=== PATIENT | female | born 1960 | race Caucasian/White ===

== ENCOUNTER 2018-06-19 10:39 | Outpatient (CLI) | payer OTHER | END 2018-06-19 10:40 | disposition home or self-care (01) | LOC: BICMAMMO 10:39 | PROVIDERS: ATTEND Obstetrics & Gynecology | DX: Z12.31 Encounter for screening mammogram for malignant neoplasm of breast (principal); R92.1 Mammographic calcification found on diagnostic imaging of breast | CPT/HCPCS: 77063; 77067 ==

== ENCOUNTER 2018-10-09 07:51 | Outpatient (CLI) | payer OTHER ==
--- NOTE | 2018-10-09 10:14 | ULT ---
LEFT BREAST DIAGNOSTIC ULTRASOUND: Indication: Palpable abnormality in the left breast at the 1 o'clock position. Comparison: None. FINDINGS: No suspicious sonographic abnormality is seen within the palpable region of the left breast at the 1 o'clock position. IMPRESSION: No suspicious sonographic abnormality seen within the palpable region of the left breast at the 1 o' clock position. POS: OFF
== END 2018-10-09 07:52 | disposition home or self-care (01) ==
LOC: BICULT 07:51
PROVIDERS: ATTEND Obstetrics & Gynecology
DX: N60.02 Solitary cyst of left breast (principal); N63.20 Unspecified lump in the left breast, unspecified quadrant
CPT/HCPCS: G0279

== ENCOUNTER 2020-04-30 09:26 | Outpatient (CLI) | payer OTHER ==
--- NOTE | 2020-04-30 10:26 | MMO ---
Bilateral MAMMO Bilat Screen [facility]. CLINICAL HISTORY: Patient is 59 years old and is seen for screening. The patient has no family history of breast cancer. The patient has no personal history of cancer. VIEWS: The views performed were: bilateral craniocaudal with tomosynthesis; bilateral mediolateral oblique with tomosynthesis; and left mediolateral oblique. FILMS COMPARED: The present examination has been compared to prior imaging studies performed at [facility] on 06/19/2018 and 10/09/2018. This study has been interpreted with the assistance of computer-aided detection. MAMMOGRAM FINDINGS: There are scattered fibroglandular densities. There is an asymmetry seen in the right breast. In the left breast, there are no suspicious masses, calcifications or areas of architectural distortion. IMPRESSION: ASYMMETRY IN THE RIGHT BREAST REQUIRES ADDITIONAL EVALUATION. AN ULTRASOUND EXAM IS RECOMMENDED IF NEEDED. ADDITIONAL IMAGING. THE RESULTS OF THIS EXAM WERE SENT TO THE PATIENT. ACR BI-RADS Category 0 - Incomplete: Need additional imaging evaluation. [facility] will notify the patient of the need for additional imaging services. MAMMOGRAPHY NOTE: 1. A negative mammogram report should not delay a biopsy if a dominant of clinically suspicious mass is present. 2. Approximately 10% to 15% of breast cancers are not detected by mammography. 3. Adenosis and dense breasts may obscure an underlying neoplasm. Reported by: JERRY HULL MD Electonically Signed: [id number]
== END 2020-04-30 09:27 | disposition home or self-care (01) ==
LOC: BICMAMMO 09:26
PROVIDERS: ATTEND Family Medicine
DX: Z12.31 Encounter for screening mammogram for malignant neoplasm of breast (principal)
CPT/HCPCS: 77063; 77067

== ENCOUNTER 2020-05-05 09:04 | Outpatient (CLI) | payer OTHER ==
--- NOTE | 2020-05-05 13:08 | CT ---
CT ANGIOGRAM CHEST WITH 3D RENDERING CT ANGIOGRAM ABDOMEN AND PELVIS WITH 3D RENDERING: Date: 05/05/2020 Exam includes with and without IV contrast. HISTORY: Mitral valve regurgitation FINDINGS: CT CHEST WITH 3D RENDERING: Heterogeneous attenuation within the right and left thyroid glands with a 1.1 cm diameter nodule in t he right lobe. Small, very faint, poorly defined ground-glass opacity in the right upper lobe measuri ng approximately 0.7 cm. Depending upon risk factors, consideration for follow-up chest CT scan in 6- 12 months for further assessment. Marked S-shaped scoliosis of the lumbar and thoracic vertebral column. The left vertebral artery orig inates from the aorta with associated small calcific plaque but without evidence for significant sten osis using NASCET criteria. Extensive thoracic aortic tortuosity, but no evidence for aortic dissection or aortic aneurysm. Posto perative changes of the stomach with some stomach herniation above the level of the hemidiaphragm, pr obably postoperative. No evidence for pleural effusion or pericardial effusion. No mediastinal mass o r adenopathy. IMPRESSION: 1. Small right lobe of thyroid nodule. 2. Small patch of faint ground glass opacity in the right upper lobe, nonspecific, but consider 6-12 months follow-up. 3. Postoperative changes of the stomach with small amount of herniation. 4. No evidence for aortic aneurysm or dissection. 5. No evidence for central pulmonary artery embolism. CT ANGIOGRAM ABDOMEN AND PELVIS WITH 3D RENDERING: Status post cholecystectomy. No ductal dilatation. Pancreas, spleen, and adrenal glands are unremarka ble. No renal calculus or acute obstruction. No large or small bowel obstruction. There are some g eneralized atherosclerotic changes of the abdominal aorta without evidence for focal aneurysm or diss ection. There is a mild, less than 50% stenosis, of the distal abdominal aorta just above the level o f the bifurcation with some associated plaque. Visualized iliac and femoral arteries appear unremarka ble. Very mild Grade I anterolisthesis of L4 on L5 with associated up to severe stenosis. IMPRESSION: 1. Postop changes of the stomach. 2. Status post cholecystectomy. 3. No evidence for abdominal aortic aneurysm or dissection. 4. Less than 50% stenosis of the distal abdominal aorta above the level of the bifurcation. 5. Other findings as above. POS: [facility]
== END 2020-05-05 09:05 | disposition home or self-care (01) ==
LOC: SCSCT 09:04
PROVIDERS: ATTEND Surgery
DX: I34.0 Nonrheumatic mitral (valve) insufficiency (principal); E04.1 Nontoxic single thyroid nodule; R91.8 Other nonspecific abnormal finding of lung field; I70.0 Atherosclerosis of aorta; M43.16 Spondylolisthesis, lumbar region; M48.061 Spinal stenosis, lumbar region without neurogenic claudication; K43.2 Incisional hernia without obstruction or gangrene; Z90.49 Acquired absence of other specified parts of digestive tract
CPT/HCPCS: 71275; 72191; 74175

== ENCOUNTER 2020-05-05 14:24 | Outpatient (CLI) | payer OTHER ==
--- NOTE | 2020-05-05 14:55 | MMO ---
Right Breast MAMMO Unilat Diag [facility]. CLINICAL HISTORY: Patient is 59 years old and is seen for diagnostic exam. VIEWS: The views performed were: . FILMS COMPARED: The present examination has been compared to prior imaging studies performed at [facility] on 06/19/2018, 10/09/2018 and 04/30/2020. This study has been interpreted with the assistance of computer-aided detection. MAMMOGRAM FINDINGS: There are scattered fibroglandular densities. The questionable asymmetric density did not persist with the additional views. There are no suspicious masses, suspicious calcifications, or new areas of architectural distortion. IMPRESSION: THERE IS NO MAMMOGRAPHIC EVIDENCE OF MALIGNANCY. A ROUTINE FOLLOW-UP MAMMOGRAM IN 1 YEAR IS RECOMMENDED. THE RESULTS OF THIS EXAM WERE SENT TO THE PATIENT. ACR BI-RADS Category 2 - Benign finding MAMMOGRAPHY NOTE: 1. A negative mammogram report should not delay a biopsy if a dominant of clinically suspicious mass is present. 2. Approximately 10% to 15% of breast cancers are not detected by mammography. 3. Adenosis and dense breasts may obscure an underlying neoplasm. Reported by: MEME RIVER MD Electonically Signed: [id number]
== END 2020-05-05 14:25 | disposition home or self-care (01) ==
LOC: BICMAMMO 14:24
PROVIDERS: ATTEND Family Medicine
DX: R92.2 Inconclusive mammogram (principal)
CPT/HCPCS: G0279

== ENCOUNTER 2020-05-06 14:17 | Outpatient (CLI) | payer OTHER ==
--- NOTE | 2020-05-06 14:57 | ULT ---
BILATERAL CAROTID DUPLEX ULTRASOUND: HISTORY: Atherosclerotic vascular disease. preoperative evaluation TECHNIQUE: Grayscale, color-flow and spectral Doppler ultrasound imaging of the extracranial carotid artery syst ems was performed bilaterally. FINDINGS: There is plaque formation on both sides. The peak systolic velocity in the right ICA measures 96 cm/s with an end-diastolic velocity of 38 cm/ s and a systolic ratio of 0.96. The peak systolic velocity in the left ICA measures 92 cm/s with an end-diastolic velocity of 35 cm/s and a systolic ratio of 0.96. Flow in both vertebral arteries remains antegrade. Incidental note is made of a right thyroid lobe nodule. IMPRESSION: 1. No evidence of hemodynamically significant stenosis. 2. Right thyroid nodule should be evaluated with a dedicated thyroid ultrasound.
== END 2020-05-06 14:18 | disposition home or self-care (01) ==
LOC: SCSULT 14:17
PROVIDERS: ATTEND Surgery
DX: I34.0 Nonrheumatic mitral (valve) insufficiency (principal); E04.1 Nontoxic single thyroid nodule
CPT/HCPCS: 93880

== ENCOUNTER 2021-04-28 07:32 | Outpatient (CLI) | payer OTHER | END 2021-04-28 07:33 | disposition home or self-care (01) | LOC: BICULT 07:32 | PROVIDERS: ATTEND Internal Medicine Nephrology | DX: N17.9 Acute kidney failure, unspecified (principal) | CPT/HCPCS: 76770; 93975 ==

== ENCOUNTER 2022-07-02 11:20 | Emergency (ER) | payer BC, OTHER ==
[2022-07-02 12:02] LABS: #Eosinphils 0.1 thou/uL (0.0-0.7); #Monocytes 0.4 thou/uL (0.11-0.59); #Neutrophils 2.7 thou/uL (1.40-6.50); %Eosinophils 1.4 % (0.0-10.0); %Lymphocytes 23.7 % (21.0-51.0); %Monocytes 9.4 % (0.0-10.0); %Neutrophils 65.6 % (42.0-75.0); Hemoglobin 14.2 g/dL (12.0-16.0); Mean Corpuscular HGB CONC 32.7 g/dL (32.0-36.0); Mean Corpuscular Hemoglobin 32.2 pg (27.0-31.0); Mean Corpuscular Volume 98.4 fL (78.0-98.0); Mean Platelet Volume 8.8 fL (7.4-10.4); Platelet Count 201 thou/uL (130-400); RBC Distribution Width 12.8 % (11.5-14.5); Red Blood Cell (RBC) Count 4.41 mill/uL (4.20-5.40); White Blood Cell (WBC) Count 4.1 thou/uL (4.8-10.8)
[2022-07-02 12:14] LABS: INR-International Normal Ratio 3.9; Prothrombin Time 38.8 sec (12.0-14.7)
[2022-07-02 12:15] LABS: PTT 62.1 sec (22.9-36.1)
[2022-07-02 12:26] LABS: ALT (SGPT) 17 U/L (8-55); AST (SGOT) 26 U/L (5-34); Alkaline Phosphatase 74 U/L (40-110); Anion Gap 15 mmol/L (10-20); BUN (Urea Nitrogen) 16 mg/dL (9.8-20.1); Bilirubin, Total 0.9 mg/dL (0.2-1.2); Calc. Creatinine Clearance 0 mL/min (70-130); Calcium 9.4 mg/dL (7.8-10.44); Carbon Dioxide 23 mmol/L (22-29); Chloride 101 mmol/L (98-107); Estimated GFR 63; Globulin 3.1 g/dL (2.4-3.5); Glucose 80 mg/dL (70-105); Potassium 4.4 mmol/L (3.5-5.1); Protein, Total 7.1 g/dL (6.0-8.3); Sodium 135 mmol/L (136-145)
[2022-07-02] MEDS ORDERED: Ondansetron PF 4 MG/2 ML Vial ONE (12:35)
[2022-07-02] MEDS ORDERED: Ketorolac Tromethamine 30 MG/ML VIAL ONE (12:35)
[2022-07-02] MEDS ORDERED: diphenhydrAMINE 25 MG CAP ONE (12:35)
[2022-07-02] MEDS ORDERED: Acetaminophen 500 MG TAB ONE ×2 (12:35→12:39)
[2022-07-02] MEDS ORDERED: Metoclopramide HCl 10 MG TAB ONE (12:37)
[2022-07-02] MEDS ORDERED: Ondansetron ODT 8 MG TAB ONE (12:47)
== END 2022-07-02 13:26 | disposition home or self-care (01) ==
LOC: ERS 11:20
DX: S06.0X0A Concussion without loss of consciousness, initial encounter (principal); S01.511S Laceration without foreign body of lip, sequela; I10 Essential (primary) hypertension; Z87.891 Personal history of nicotine dependence; Z79.01 Long term (current) use of anticoagulants
CPT/HCPCS: 36415; 70450; 70486; 80053; 85025; 85610; 85730; 96372; J1885; J2405; Q0162

== ENCOUNTER 2023-01-03 07:38 | Outpatient (CLI) | payer BC | END 2023-01-03 07:39 | disposition home or self-care (01) | LOC: CT 07:38 | PROVIDERS: ATTEND Family Medicine | DX: S19.9XXA Unspecified injury of neck, initial encounter (principal); G95.89 Other specified diseases of spinal cord; M47.812 Spondylosis without myelopathy or radiculopathy, cervical region | CPT/HCPCS: 70450; 72125 ==

== ENCOUNTER 2023-01-09 07:56 | Outpatient (CLI) | payer BC | END 2023-01-09 07:57 | disposition home or self-care (01) | LOC: TBSIIMAG 07:56 | PROVIDERS: ATTEND Neurological Surgery | DX: S12.100A Unspecified displaced fracture of second cervical vertebra, initial encounter for closed fracture (principal) | CPT/HCPCS: 72040 ==

== ENCOUNTER 2023-01-29 08:44 | Outpatient (CLI) | payer BC | END 2023-01-29 08:45 | disposition home or self-care (01) | LOC: CT 08:44 → BICMRI 08:45 | PROVIDERS: ATTEND Neurological Surgery | DX: M47.22 Other spondylosis with radiculopathy, cervical region (principal); S12.100A Unspecified displaced fracture of second cervical vertebra, initial encounter for closed fracture; M48.8X2 Other specified spondylopathies, cervical region; M47.12 Other spondylosis with myelopathy, cervical region | CPT/HCPCS: 72125; 72141 ==

== ENCOUNTER 2023-03-01 08:12 | Outpatient (CLI) | payer BC | END 2023-03-01 08:13 | disposition home or self-care (01) | LOC: CT 08:12 | PROVIDERS: ATTEND Neurological Surgery | DX: M54.12 Radiculopathy, cervical region (principal); S12.100D Unspecified displaced fracture of second cervical vertebra, subsequent encounter for fracture with routine healing; L84 Corns and callosities | CPT/HCPCS: 72125 ==